=== PATIENT | male | born 1965 | race African-American/Black ===

== ENCOUNTER → 2020-12-28 | Outpatient (CLI) | payer OTHER ==
--- NOTE | 2020-12-28 17:14 | KCIC ---
MRI study of the left wrist without contrast Clinical indications: Radial left wrist pain for one month. Radial styloid tenosynovitis. TECHNIQUE: Noncontrast MRI sequences of the left wrist were performed in all 3 planes. FINDINGS: No fracture or marrow infiltrative process is seen. The scaphoid bone is intact. No avascul ar necrosis of the scaphoid bone or lunate bone is seen. There is degenerative cyst formation and mil d degenerative spurring of the intercarpal joints. There is mild degenerative osteoarthritis of the f irst carpal metacarpal joint with a subchondral cyst of the proximal first metacarpal bone. There is no widening of the scaphoid lunate joint space or the lunate triquetrum joint space. The scaphoid carlos ate ligament and lunate triquetrum ligament are intact. The xgusig-uxirme-alzyvxol axis is normal. Th ere is proximal subluxation of the pisiform with respect to the triquetrum bone with degenerative spu rring of this joint compartment. There is a small joint effusion here. There are periarticular small fluid collections emanating medially and posteriorly from this joint space and also laterally from th e joint space into the deep portion of the carpal tunnel. This may represent periarticular ganglia. T here is a small radial scaphoid joint effusion which wraps around the distal pole of the scaphoid bon e. There is increased signal within the extensor pollicis brevis tendon and the abductor pollicis khanh yoly tendon at the level of the radial styloid process consistent with tendinosis and/or mild partial longitudinal split tear. There is minimal fluid within the tendinous sheath around the extensor polli cis brevis tendon. There is mild tenosynovitis of the extensor carpi radialis longus and brevis tendo ns at the level of the distal radius. No tear of these tendons is seen. The extensor pollicis longus tendon appears torn at the level of the distal radius. There is increased signal within the extensor carpi ulnaris tendon at the level of the distal ulna consistent with tendinosis/partial tear without tenosynovitis. This tendon is located within the distal ulnar groove. The flexor tendons are intact w ithout tenosynovitis. The median nerve within the carpal tunnel does not appear edematous. The triang ular fibrocartilage complex is intact. Small distal radioulnar joint effusion is seen. IMPRESSION: Degenerative osteoarthritis of the left wrist as discussed above. No fracture or avascula r necrosis is seen. Tear of the extensor pollicis longus tendon. Tendinosis/mild partial longitudinal split tear of the e xtensor pollicis brevis tendon and abductor pollicis longus tendon. Mild tenosynovitis of the extenso r carpi radialis longus/brevis tendons. Tendinosis/partial longitudinal split tear of the extensor ca rpi ulnaris tendon. Electronically signed by: Zaheer Santiago MD (12/28/2020 5:12 PM) [id number]
== END ==
LOC: KCIC MRI 13:16
DX: S63.002A Unspecified subluxation of left wrist and hand, initial encounter (principal); S66.212A Strain of extensor muscle, fascia and tendon of left thumb at wrist and hand level, initial encounter; M19.032 Primary osteoarthritis, left wrist; M25.432 Effusion, left wrist; M77.8 Other enthesopathies, not elsewhere classified; M25.832 Other specified joint disorders, left wrist; X58.XXXA Exposure to other specified factors, initial encounter; Y93.89 Activity, other specified; Y92.89 Other specified places as the place of occurrence of the external cause; Y99.8 Other external cause status
CPT/HCPCS: 73221